=== PATIENT | male | born 1975 ===

== ENCOUNTER → 2016-08-21 | Outpatient (REF) ==
[2016-08-21 13:37] LABS: THYROID STIMULATING HORMONE 1.5 uIU/mL (0.465-4.680)
[2016-08-21 14:19] LABS: CHLAMYDIA/TRACH by PCR Male NOT DETECTED; Neisseria Gon by PCR Male NOT DETECTED
[2016-08-24 11:29] LABS: HIV 1/2 Antibodies Non-Reactive; HIV-1p24 Antigen Non-Reactive
[2016-08-24 11:35] LABS: LITHIUM 0.4 mmol/L (0.6-1.2)
== END ==
LOC: ZLAB.WCH 12:25
PROVIDERS: Medical Genetics Clinical Genetics (M.D.)
DX: Z01.89 Encounter for other specified special examinations (principal)

== ENCOUNTER → 2018-03-21 | Outpatient (REF) ==
[2018-03-21 17:22] LABS: THYROID STIMULATING HORMONE 1.2 uIU/mL (0.465-4.680)
[2018-03-21 17:43] LABS: PSA-TOTAL 0.35 ng/mL (0-4)
== END ==
LOC: ZLAB.WCH 16:28
PROVIDERS: Internal Medicine
DX: Z01.89 Encounter for other specified special examinations (principal)
CPT/HCPCS: G0103